=== PATIENT | male | born 1950 | race Hispanic/Latino ===

== ENCOUNTER 2017-07-13 00:18 | Day surgery (SDC) | payer SELFPAY ==
[2017-07-09 12:29] VITALS: BP 189/86
[2017-07-09 12:36] LABS: BASOPHIL % 0.5 % (0.0-0.2); EOSINOPHIL # 0.2 10^3/uL (0.0-0.2); EOSINOPHIL % 1.7 % (0.0-5.0); HEMOGLOBIN 14.2 g/dL (13.9-16.3); LYMPHOCYTES # 1.8 10^3/uL (1.0-4.8); LYMPHOCYTES % 20.5 % (24.0-44.0); MEAN CELL HGB 27.3 pg (26-34); MEAN CELL HGB CONCENTRATION 32.3 g/dL (33-37); MEAN CORP VOLUME 84.5 fL (78-100); MEAN PLATELET VOLUME 9.1 fL (7.8-11.0); MONOCYTES # 0.8 10^3/uL (0.3-0.8); MONOCYTES % 8.7 % (5.0-12.0); NEUTROPHIL # 5.9 10^3/uL (1.8-7.7); NEUTROPHILS % 68.4 % (41.0-85.0); RED CELL DISTRIBUTION WIDTH 12.1 % (11.5-14.5); WHITE BLOOD CELL 8.7 10^3/uL (4.5-11.0)
[2017-07-09 12:46] LABS: CALCIUM 9.4 mg/dL (8.4-10.5); CARBON DIOXIDE 28.8 mmol/L (20.0-32)
--- NOTE | 2017-07-09 15:30 | DIREP ---
PROCEDURE:CHEST 2 VIEWS COMPARISON:[facility], CR, XRAY CHEST 2 VWS, 06/23/2017, 08:40 AM. INDICATIONS:PREOP HEART CATH FINDINGS: LUNGS/PLEURA:Minimal bilateral pleural effusions. VASCULATURE:Normal. Unremarkable pulmonary vasculature. CARDIAC:Normal heart size. MEDIASTINUM:Normal. No visible mass or adenopathy. BONES:No acute pathology. OTHER:Negative. CONCLUSION:Compared to the prior exam, there has been further decrease in the size of pleural effusions. Dictated by: Kahlil Argueta M.D. on 07/09/2017 at 03:29 PM
[2017-07-13] VITALS (14 sets, daily range): BP systolic 137–189; BP diastolic 70–83
[~2017-07-13] VITALS: Ht 182.9 cm; Wt 107.0 kg
[~2017-07-13 00:18] MED LIST: AMLO10TA2 PO; HYDR25TA9 PO; LISI-410 PO; METF500T4 PO; METO-237 PO; POTA10TA14 PO
[2017-07-13] MEDS ORDERED: NS 1000ML 1,000 ML ONE ×2 (04:44→06:00)
[2017-07-13] MEDS ORDERED: HEPARIN ONE ×2 (06:00→08:25)
[2017-07-13] MEDS ORDERED: SUBLIMAZE ONE (06:00)
[2017-07-13] MEDS ORDERED: VERSED ONE (06:01)
[2017-07-13] MEDS ORDERED: XYLOCAINE ONE (06:01)
[2017-07-13] MEDS ORDERED: PHENERGAN ONE (06:24)
[2017-07-13] MEDS ORDERED: VALIUM ONE (06:24)
[2017-07-13] MEDS ORDERED: NS 1000ML 1,000 ML IV SCH (08:00)
[2017-07-13] MEDS ORDERED: VALIUM PO ONE (08:00)
[2017-07-13] MEDS ORDERED: PHENERGAN PO ONE (08:00)
[2017-07-13] MEDS ORDERED: TRANDATE IV ONE (08:03)
[2017-07-13] MEDS ORDERED: NITROGLYCERIN 25MG/D5W 250ML 250 ML IV ONE (08:21)
[2017-07-13] MEDS ORDERED: ADENOSINE IV ONE (08:22)
--- NOTE | 2017-07-13 10:01 | [facility] ---
DATE OF SERVICE: 07/13/2017 PRECATHETERIZATION DIAGNOSES: Abnormal myocardial perfusion scan, hypertension, diabetes, and inferoposterior ischemic substrate. POSTCATHETERIZATION DIAGNOSES: Left main is patent, LAD is a type 3 vessel with diffuse luminal irregularity, no flow obstruction is documented. The diagonal branch has got mild luminal irregularities. Circumflex mild, luminal irregularity appears to be patent. Codominant right coronary artery with mid RCA showing in WOLOF view a concentric 55-60% stenosis and FFR wire was floated into the right coronary artery through JR4 6-Bermudian, guiding catheter and after adenosine provocation for 4 minutes. The FFR was 0.9, not significant lesion. So, no PCI was performed. Left ventricle is normal in size with good wall contractility, ejection fraction of 60%. ANESTHESIA: 2% lidocaine. PREOPERATIVE MEDICATIONS: Phenergan 50 mg p.o., Valium 2.5 mg p.o., Versed 2 mg IV, fentanyl 25 mcg IV. ANTICOAGULATION: Heparin 2000 units intra-arterially, 2000 units in the flush solution and also received another 7000 units of heparin while doing FFR, total dye is mL. CATHETERS: JL4 6-Bermudian, JR4 6-Bermudian, and 6-Bermudian angled pigtail catheter. ARTERIAL TIME: 40 minutes. FLUOROSCOPY TIME: Close to 8.2 minutes. PROCEDURES: Left heart catheterization, bilateral selective coronary arteriography, left ventriculography and FFR measurement after adenosine provocation in the right coronary artery. NARRATION OF PROCEDURE: Under local anesthesia, the right femoral artery was punctured using open needle technique, and 6-Bermudian Cordis sheath was introduced into the femoral artery. Side port of the sheath was used for continuous monitoring of femoral arterial pressure. Subsequently, JL4 6-Bermudian left Sayda coronary catheter was introduced over a guidewire and navigated across the ascending aorta, and selective cannulation of left coronary artery was achieved. Left coronary arteriography was performed in WOLOF and WARREN projections using craniocaudal angulations for adequate visualization of all the branches. This catheter was then exchanged with JR4 6-Bermudian right coronary catheter which was manipulated, and selective cannulation of right coronary artery was achieved. Right coronary arteriography was performed in WOLOF and AP projections. Right coronary catheter was then exchanged with 6-Bermudian angled pigtail catheter which was navigated across the aortic valve. Hemodynamics were measured, and left ventriculography was performed in 30-degree WARREN projection using 35 mL of Isovue at 12 mL/sec at 600 PSI. Patient tolerated the procedure well. HEMODYNAMICS: LVEDP is about 15 mm, LV pressure is 180/15, femoral artery pressure 160/70 with a mean of 85. No gradient across the aorta on pullback of the central catheter. FINAL CONCLUSION: CAD with left main patent, diffuse luminal irregularity in the LAD, some luminal irregularity in the diagonal and several small septal perforators have got atherosclerosis, but no major epicardial vessel obstructive disease is documented. Circumflex is a good size vessel with an obtuse marginal branch, appears to be patent. RCA codominant vessel with mid RCA 55-60% lesion with normal FFR after adenosine provocation to 0.9. Normal LV contractility. PLAN: The plan at this time, optimization of medical therapy. Laxmichand MD Lachelle DR: TOMÁS/serenity JOB# [id number]
[2017-07-13] MEDS ORDERED: ZESTRIL PO ONE (10:35)
[2017-07-13] MEDS ORDERED: NORVASC ONE (10:35)
[2017-07-13] MEDS ORDERED: ZESTRIL ONE (10:35)
[2017-07-13] MEDS ORDERED: NORVASC PO ONE (10:35)
== END 2017-07-13 12:10 | disposition home or self-care (01) ==
LOC: SDC 00:18
PROVIDERS: ATTEND Specialist
DX: I25.10 Atherosclerotic heart disease of native coronary artery without angina pectoris (principal); I10 Essential (primary) hypertension; E11.9 Type 2 diabetes mellitus without complications; E66.9 Obesity, unspecified; Z68.32 Body mass index [BMI] 32.0-32.9, adult
CPT/HCPCS: 36415; 71046; 80048; 82948 ×2; 85025; 85610; 85730; 93458; 93571; 99152; 99153 ×3; C1887; C1894 ×3; J0153; J1644 ×5; J2250; J3010; J3490 ×2; J7030 ×2; Q9967; C1760; C1769